=== PATIENT | female | born 1955 | race Caucasian/White ===

== ENCOUNTER 2018-10-20 22:04 | Emergency (ER) | payer OTHER ==
[~2018-10-20] VITALS: Ht 162.6 cm; Wt 98.5 kg
[2018-10-20 22:14] VITALS: Ht 162.6 cm; Wt 98.5 kg
[2018-10-20] MEDS ORDERED: ACETAMINOPHEN 500 MG TAB PO STA (22:39)
[2018-10-20] MEDS ORDERED: ACET325T33 PO (22:42)
--- NOTE | 2018-10-21 04:06 | ERD ---
ER Documentation Chief Complaint Chief Complaint s/p Fall on [address], left arm and left arm pain HPI This is a 63-year-old female with history of diabetes presenting to the emergency department stating that she has left arm pain from a mechanical ground-level fall. The pain mild in severity with movement. She denies any wrist range of motion. Denies any medication ROS All systems reviewed and are negative except as per history of present illness. Medications Home Meds Active Scripts Acetaminophen* (Tylenol*) 325 Mg Tablet, 2 TAB PO Q6 PRN for PAIN AND OR ELEVATED TEMP, #30 TAB Prov:LILI WOLF PA-C 10/20/18 Allergies Allergies: Coded Allergies: No Known Allergy (Unverified , 10/20/18) PMhx/Soc History of Surgery: Yes (c/section x2) Hx Cardiac Disorders: Yes (htn, iddm) Hx Alcohol Use: No Hx Substance Use: No Hx Tobacco Use: No Smoking Status: Never smoker Physical Exam Vitals Vital Signs Date Temp Pulse Resp B/P (MAP) Pulse Ox O2 O2 Flow FiO2 Time Delivery Rate 10/20/18 98.8 57 20 172/72 98 22:14 (105) Physical Exam Const: No acute distress Head: Atraumatic Eyes: Normal Conjunctiva ENT: Normal External Ears, Nose and Mouth. Neck: Full range of motion. No meningismus. Resp: Clear to auscultation bilaterally Cardio: Regular rate and rhythm, no murmurs Abd: Soft, non tender, non distended. Normal bowel sounds Skin: No petechiae or rashes Back: No midline or flank tenderness Ext: Full range of motion of all extremities, nontender to palpate her arm Neur: Awake and alert Psych: Normal Mood and Affect Results 24 hrs Current Medications Medications Dose Sig/[place] Start Time Status Last (Trade) Ordered Route PRN Stop Time Admin Dose Reason Admin 1,000 mg ONCE STAT 10/20/18 DC Acetaminophen PO 22:39 10/20/18 (Tylenol 22:50 Tab) Procedures/MDM 3-year-old female who had a mechanical fall in the hospital presenting with left arm pain, on examination patient did not have any wrist range of motion. She had full range of motion and not tender to palpate. I doubt any fracture dislocation. Patient stable to be discharged home. She is neurovascular tach. Patient was given prescription for Tylenol for home Departure Diagnosis: Primary Impression: Fall Additional Impression: Left arm pain Condition: Stable Patient Instructions: Fall, Mechanical, Fall Prevention Referrals: NO PRIMARY,CARE PHYSICIAN Additional Instructions: Visite a castro matthew to para un EXAMEN.Regrese a estas instalaciones si no se mejora mk esperbamos o mk le dijimos. [place] toda la medicina [place] y mk se le indic. LILI WOLF PA-C Oct 21, 2018 04:06
== END 2018-10-20 23:00 | disposition home or self-care (01) ==
LOC: FTE 22:04
DX: M79.602 Pain in left arm (principal); I10 Essential (primary) hypertension; E11.9 Type 2 diabetes mellitus without complications
CPT/HCPCS: 99282

== ENCOUNTER 2018-12-22 07:32 | Day surgery (SDC) | payer OTHER ==
[2018-12-22] VITALS (11 sets, daily range): BP systolic 122–159; BP diastolic 60–77; PULSE 66–79; RESP 11–18; Ht 160 cm; Wt 97.0 kg
[~2018-12-22] VITALS: Ht 160 cm; Wt 97.0 kg
[~2018-12-22 07:32] MED LIST: ACET325T33 PO
--- NOTE | 2018-12-22 08:05 | HPN ---
Date/Time of Note Date/Time of Note DATE: 12/22/18 TIME: 08:05 Interval H&P Admission Note Pt. seen H&P reviewed: No system changes RUSS PIKE MD Dec 22, 2018 08:05
[2018-12-22] MEDS ORDERED: ASPI-903 PO (08:28)
[2018-12-22] MEDS ORDERED: LOSA50TA14 PO (08:28)
[2018-12-22] MEDS ORDERED: LEVO175T6 PO (08:28)
[2018-12-22] MEDS ORDERED: CALC500T91 PO (08:29)
[2018-12-22] MEDS ORDERED: FURO40TA4 PO (08:29)
[2018-12-22] MEDS ORDERED: EZET10TA31 PO (08:30)
[2018-12-22] MEDS ORDERED: SOD CHLORIDE 0.9% 1,000 ML IV SCH (08:30)
[2018-12-22] MEDS ORDERED: NPH,100V SQ ×2 (08:34→08:35)
[2018-12-22] MEDS ORDERED: ATEN50TA PO (08:34)
[2018-12-22] MEDS ORDERED: INSU100V3 IJ (08:35)
[2018-12-22] MEDS ORDERED: LIDOCAINE 1% (MDV) 20 ML INJ ONE (10:08)
[2018-12-22] MEDS ORDERED: FENTAnyl 50 MCG/ML VIAL ONE (10:13)
[2018-12-22] MEDS ORDERED: MIDAZOLAM 1 MG/ML 2 ML INJ ONE (10:13)
[2018-12-22] MEDS ORDERED: GELATIN 12MM X 7 MM SPONGE ONE (10:13)
[2018-12-22] MEDS ORDERED: ONDANSETRON 4 MG INJ ONE (11:02)
--- NOTE | 2018-12-22 12:06 | HPN ---
Date/Time of Note Date/Time of Note DATE: 12/22/18 TIME: 12:05 Interval H&P Admission Note Pt. seen H&P reviewed: No system changes RUSS PIKE MD Dec 22, 2018 12:05
== END 2018-12-22 14:15 | disposition home or self-care (01) ==
LOC: SDS 07:32
PROVIDERS: ATTEND Internal Medicine
DX: I12.9 Hypertensive chronic kidney disease with stage 1 through stage 4 chronic kidney disease, or unspecified chronic kidney disease (principal); N26.9 Renal sclerosis, unspecified; E11.22 Type 2 diabetes mellitus with diabetic chronic kidney disease; N18.9 Chronic kidney disease, unspecified
CPT/HCPCS: 50200; 77012; 82962; J2405; J3010; Z7610; J2250